=== PATIENT | female | born 1955 | race Caucasian/White ===

== ENCOUNTER 2020-09-12 17:52 | Emergency (ER) | payer BC, OTHER ==
[2020-09-12] MEDS ORDERED: Ondansetron PF 4 MG/2 ML Vial ONE (18:18)
[2020-09-12] MEDS ORDERED: Morphine 2 MG/ML VIAL ONE ×2 (18:18→20:26)
[2020-09-12] MEDS ORDERED: Dicyclomine 20 MG TAB ONE (18:18)
[2020-09-12] MEDS ORDERED: Morphine 4 MG/ML VIAL ONE (20:25)
[2020-09-12 23:29] LABS: SARS-CoV-2 NAA Rapid Test Not Detected (NotDetected)
== END 2020-09-12 21:18 | disposition home or self-care (01) ==
LOC: ERS 17:52
DX: A09 Infectious gastroenteritis and colitis, unspecified (principal)
CPT/HCPCS: 36415; 83690; 96374; 96375; 96376; J2270; J2405; U0002